=== PATIENT | female | born 1970 | race Caucasian/White ===

== ENCOUNTER 2023-12-31 16:17 | Emergency (ER) | payer MEDICAID ==
[~2023-12-31] VITALS: Ht 165.1 cm; Wt 102.1 kg
[2023-12-31 16:25] VITALS: BP 157/96; PULSE 74; RESP 16; TEMP 99; O2SAT 97
[2023-12-31] MEDS ORDERED: DICYCLOMINE 10 MG/5 ML ORAL SYR PO STA (16:54)
[2023-12-31 17:12] LABS: CLARITY URINE CLEAR (CLEAR); COLOR URINE YELLOW (YELLOW); GLUCOSE URINE NEGATIVE (NEGATIVE); KETONES URINE NEGATIVE (NEGATIVE); LEUKOCYTE ESTERASE URINE TRACE (NEGATIVE); NITRITE URINE NEGATIVE (NEGATIVE); OCCULT BLOOD URINE NEGATIVE (NEGATIVE); PROTEIN URINE NEGATIVE (NEGATIVE); SPECIFIC GRAVITY URINE 1.017 (1.005-1.030); UROBILINOGEN URINE 0.2 E.U./dL (0.2-1.0)
[2023-12-31] MEDS: SODIUM CHLORIDE 0.9% 1,000 ML IV ONE (17:24)
[2023-12-31] MEDS: MAGNESIUM/ALUMINUM HYDROXIDE/SIMETHICONE 30ML UDC PO STA (17:24)
[2023-12-31] MEDS: ONDANSETRON HCL 4MG/2ML INJ IV STA (17:24)
[2023-12-31] MEDS: KETOROLAC 30MG/ML VIAL IV STA (17:24)
[2023-12-31 17:29] LABS: BASOPHILS % 0.7 % (0.0-2.0); EOSINOPHILS % 2.3 % (0.0-5.0); HEMATOCRIT. 39.4 % (36.0-48.0); HEMOGLOBIN. 13.7 g/dL (12.0-16.0); MEAN CORPUSCULAR HEMOGLOBIN 31.2 pg (28.0-32.0); MEAN CORPUSCULAR HGB CONC 34.8 g/dL (31.0-37.0); MEAN CORPUSCULAR VOLUME 89.7 fL (81.0-99.0); MEAN PLATELET VOLUME 8.5 fl (7.4-10.4); MONOCYTES % 6.6 % (2.0-8.0); NEUTROPHILS % 65.4 % (40.0-76.0); PLATELET 335 x1000/uL (130-400); RED BLOOD CELL COUNT 4.39 mill/uL (4.2-5.4); RED CELL DISTRIBUTION WIDTH 13.6 % (11.6-14.6); WHITE BLOOD COUNT 11.9 x1000/uL (4.5-11.0)
[2023-12-31 17:30] LABS: CHLORIDE 105 mEq/L (98-107); INR 0.9; POTASSIUM 3.8 mEq/L (3.5-5.1); PROTHROMBIN TIME 10.3 sec (9.6-11.0); SODIUM 140 mEq/L (136-145)
[2023-12-31] MEDS: DICYCLOMINE HCL 10MG CAPSULE PO NR (17:30)
[2023-12-31 17:31] LABS: CALCIUM 9.3 mg/dL (8.7-10.4); CARBON DIOXIDE 28 mEq/L (21-32)
[2023-12-31 17:36] LABS: CREATININE 0.9 mg/dL (0.6-1.0); GLUCOSE 124 mg/dL (70-105); UREA NITROGEN BLOOD 14 mg/dL (9-23)
[2023-12-31 17:37] LABS: HCG SCREEN INDETERMINATE
[2023-12-31 17:38] LABS: ALANINE AMINOTRANSFERASE 31 IU/L (10-49); ALBUMIN 4.6 g/dL (3.2-4.8); ASPARTATE AMINOTRANSFERASE 25 IU/L (<34)
[2023-12-31 17:39] LABS: BILIRUBIN TOTAL 0.3 mg/dL (0.1-1.0); PROTEIN TOTAL 7.4 g/dL (6.0-8.3)
[2023-12-31 17:41] LABS: BILIRUBIN DIRECT < 0.1 mg/dL (<=3.0)
[2023-12-31 17:43] LABS: BACTERIA URINE FEW; RBC URINE 0-2 /hpf (0-2); SQUAMOUS EPITHELIAL CELL URINE FEW /lpf (RARE/1+)
[2023-12-31] MEDS: CEFTRIAXONE 1GM/50ML 50 ML IV ONE (18:31)
[2023-12-31] MEDS ORDERED: ONDA4TAB11 PO (18:38)
== END 2023-12-31 20:07 | disposition home or self-care (01) ==
LOC: ER 16:17
DX: A08.4 Viral intestinal infection, unspecified (principal); N39.0 Urinary tract infection, site not specified; Z90.49 Acquired absence of other specified parts of digestive tract; Z98.890 Other specified postprocedural states
CPT/HCPCS: 80076; 80048; 81003; 81025; 84703; 84702; 83690; 85025; 85610; 36415; 74176; 96361; 96365; 96375; 99285; J0696; J1885; J2405; J7030; Z7610 ×2